=== PATIENT | female | born 2000 | race Caucasian/White ===

== ENCOUNTER 2018-06-27 16:48 | Emergency (ER) | payer OTHER ==
--- NOTE | 2018-06-27 17:47 | ERPHSYRPT ---
- History of Present Illness Time Seen by Provider: 06/27/18 17:30 Source: patient, family Exam Limitations: no limitations Physician History: 17 y/o white female presents with multiple ear piercings. pt states approx a month ago she noticed one of the piercings of left earlobe was slowly pulling through. pt states this morning it finally came apart. no pain, no infection and no bleeding. Timing/Duration: week(s) (opening up over last 4 weeks) Quality: other (no pain) Location: other ( left earlobe) Associated Symptoms: denies symptoms - Review of Systems Constitutional: No Symptoms Eyes: No Symptoms Ears, Nose, & Throat: No Symptoms Respiratory: No Symptoms Cardiac: No Symptoms Abdominal/Gastrointestinal: No Symptoms Genitourinary Symptoms: No Symptoms Musculoskeletal: No Symptoms Skin: Other (left earlobe apart from earring pulled through) Neurological: No Symptoms Psychological: No Symptoms Endocrine: No Symptoms Hematologic/Lymphatic: No Symptoms Immunological/Allergic: No Symptoms All Other Systems: Reviewed and Negative - Past Medical History Pertinent Past Medical History: Yes Neurological History: No Pertinent History ENT History: No Pertinent History Cardiac History: No Pertinent History Respiratory History: No Pertinent History Endocrine Medical History: No Pertinent History Musculoskeletal History: No Pertinent History GI Medical History: No Pertinent History History: No Pertinent History Psycho-Social History: No Pertinent History Female Reproductive Disorders: No Pertinent History - Past Surgical History Neuro Surgical History: No Pertinent History Cardiac: No Pertinent History Respiratory: No Pertinent History Gastrointestinal: No Pertinent History Genitourinary: No Pertinent History Musculoskeletal: No Pertinent History Female Surgical History: No Pertinent History - Physical Exam General Appearance: no apparent distress, alert, anxiety Eye Exam: PERRL/EOMI Ears, Nose, Throat Exam: other (upside down "v" shaped well healed left earlobe laceration.) Neck Exam: normal inspection Respiratory Exam: normal breath sounds Gastrointestinal/Abdomen Exam: soft Pelvic Exam: not done Rectal Exam: not done Back Exam: normal inspection Extremity Exam: normal inspection Neurologic Exam: alert, oriented x 3, cooperative, carpenter wooden tank erecting II-XII nml as tested Skin Exam: normal color, warm, dry Lymphatic Exam: No adenopathy SpO2 Interpretation: normal Oxygen Delivery: Room Air - Course Nursing assessment & vital signs reviewed: Yes - Progress Progress: unchanged Counseled pt/family regarding: diagnosis, need for follow-up - Departure Time of Disposition: 17:54 Departure Disposition: Home Clinical Impression: Encounter for medical screening examination, Torn earlobe Condition: Stable Critical Care Time: No Referrals: TONO NIETO SNAKE CHARMER [Primary Care Provider] - Additional Instructions: keep site clean. follow up with plastic surgeon of choice for further management
[2018-06-27 18:04] VITALS: BP 111/58; PULSE 64; O2SAT 99
== END 2018-06-27 18:35 | disposition home or self-care (01) ==
LOC: ED 16:48
DX: Z03.89 Encounter for observation for other suspected diseases and conditions ruled out (principal)
CPT/HCPCS: 99283